=== PATIENT | female | born 1935 | race Caucasian/White ===

== ENCOUNTER → 2020-03-12 | Outpatient (CLI) | payer OTHER, BC | LOC: SJCVCIMAG 15:13 | PROVIDERS: ATTEND Emergency Medicine | DX: I70.202 Unspecified atherosclerosis of native arteries of extremities, left leg (principal) ==

== ENCOUNTER → 2020-03-12 | Outpatient (CLI) | payer OTHER, BC | LOC: HYPER 13:25 | PROVIDERS: ATTEND Emergency Medicine | DX: L89.613 Pressure ulcer of right heel, stage 3 (principal); C90.00 Multiple myeloma not having achieved remission; M79.671 Pain in right foot; G62.0 Drug-induced polyneuropathy; R26.0 Ataxic gait; N18.4 Chronic kidney disease, stage 4 (severe); R60.0 Localized edema; G47.00 Insomnia, unspecified; Z79.01 Long term (current) use of anticoagulants; Z90.710 Acquired absence of both cervix and uterus ==

== ENCOUNTER → 2020-03-19 | Outpatient (CLI) | payer OTHER, BC | LOC: HYPER 14:33 | PROVIDERS: ATTEND Emergency Medicine | DX: L89.613 Pressure ulcer of right heel, stage 3 (principal); C90.00 Multiple myeloma not having achieved remission; G62.0 Drug-induced polyneuropathy; R26.0 Ataxic gait; N18.4 Chronic kidney disease, stage 4 (severe); R60.0 Localized edema; Z79.01 Long term (current) use of anticoagulants ==